=== PATIENT | male | born 1965 | race Caucasian/White ===

== ENCOUNTER 2019-04-17 21:34 | Emergency (ER) | payer SELFPAY ==
[~2019-04-17] VITALS: Ht 172.7 cm; Wt 77.1 kg
[2019-04-17 22:07] VITALS: BP 148/89; Ht 172.7 cm; Wt 77.1 kg
== END 2019-04-18 02:01 | disposition left against medical advice (07) ==
LOC: ED 21:34
DX: Z53.21 Procedure and treatment not carried out due to patient leaving prior to being seen by health care provider (principal)

== ENCOUNTER 2019-09-25 11:35 | Inpatient (IN) | payer BC ==
[~2019-09-25] VITALS: Ht 177.8 cm; Wt 97.1 kg
[2019-09-25 11:40] VITALS: Ht 177.8 cm; Wt 97.1 kg
[2019-09-25 13:24] LABS: PLATELET COUNT 275 x10^3mcL (130-400)
[2019-09-25 13:25] LABS: CARBON DIOXIDE 27.3 mmol/L (21-32); CHLORIDE SERUM 100 mmol/L (98-107); CREATININE SERUM 1.3 mg/dL (0.7-1.3); GFR1 > 60 mL/min; GLUCOSE SERUM 104 mg/dL (74-106); POTASSIUM SERUM 3.5 mmol/L (3.5-5.1); SODIUM SERUM 135 mmol/L (136-145)
[2019-09-25 13:31] LABS: BASOPHIL % 0 % (0-2)
[2019-09-25 13:36] LABS: ALBUMIN 3.4 g/dL (3.4-5.0); ALKALINE PHOSPHATASE 102 U/L (46-116); ALT/SGPT 24 U/L (16-63); AST/SGOT 11 U/L (15-37); BILIRUBIN TOTAL 1.82 mg/dL (0.20-1.00); C REACTIVE PROTEIN 7.3 mg/dL (<=0.9); TOTAL PROTEIN, SERUM 7.6 g/dL (6.4-8.2)
[2019-09-25 13:38] LABS: CK-MB 0.7 ng/mL (0-3.6)
[2019-09-25 13:59] LABS: ERYTHROCYTE SED RATE 14 mm/hr (0-20)
[2019-09-25 14:02] LABS: T3 TOTAL 1.26 ng/mL
[2019-09-25 14:54] LABS: FREE T4 0.95 ng/dL (0.76-1.46); FREE THYROXINE INDEX 2.3 ug/dL (1.4-4.5); T4(THYROXINE) 6.9 ug/dL (4.7-13.3)
[2019-09-25 17:56] LABS: CHOLESTEROL/HDL RATIO 3.3; MAGNESIUM 2.2 mg/dL (1.8-2.4); PHOSPHOROUS 2.7 mg/dL (2.5-4.9)
[2019-09-26 00:30] VITALS: BP 155/82
[2019-09-26 00:31] LABS: UA SPECIFIC GRAVITY 1.025 (1.005-1.035); microscopic required? YES; urine erythrocyte 2+ (NEGATIVE)
[2019-09-26 00:49] LABS: AMPHETAMINE QUAL UR POSITIVE (See below)
[2019-09-26 05:40] VITALS: BP 157/93
[2019-09-26 08:15] LABS: BASOPHIL % 0.2 % (0-2); PLATELET COUNT 229 x10^3mcL (130-400)
[2019-09-26 08:44] LABS: CALCIUM 7.6 mg/dL (8.5-10.1); CHLORIDE SERUM 103 mmol/L (98-107); CREATININE SERUM 1.1 mg/dL (0.7-1.3); GFR1 > 60 mL/min; GLUCOSE SERUM 107 mg/dL (74-106); MAGNESIUM 2.1 mg/dL (1.8-2.4); PHOSPHOROUS 2.8 mg/dL (2.5-4.9); POTASSIUM SERUM 3.4 mmol/L (3.5-5.1); SODIUM SERUM 136 mmol/L (136-145)
[2019-09-26 08:58] LABS: RED CELL DISTRIBUTION WIDTH 14.6 % (11.5-14.5)
[2019-09-26 09:32] VITALS: BP 127/82
[2019-09-26 12:46] VITALS: BP 139/95
[2019-09-26] MEDS ORDERED: ECOZA1% TOP (14:36)
[2019-09-26] MEDS ORDERED: ZES5 PO (14:37)
[2019-09-26 16:10] VITALS: BP 140/92
[2019-09-26 16:26] VITALS: BP 140/92
== END 2019-09-26 17:10 | disposition home or self-care (01) | DRG 603 ==
LOC: ED 11:35 → MU 15:40 → DU 09-26 10:39
PROVIDERS: Specialist; ADMIT Family Medicine; ATTEND Family Medicine
DX: L03.115 Cellulitis of right lower limb (principal); T69.022A Immersion foot, left foot, initial encounter; T69.021A Immersion foot, right foot, initial encounter; E87.1 Hypo-osmolality and hyponatremia; L03.116 Cellulitis of left lower limb; B35.3 Tinea pedis; D72.829 Elevated white blood cell count, unspecified; E86.0 Dehydration; I10 Essential (primary) hypertension; E11.9 Type 2 diabetes mellitus without complications; E83.51 Hypocalcemia; T24.201A Burn of second degree of unspecified site of right lower limb, except ankle and foot, initial encounter; T24.202A Burn of second degree of unspecified site of left lower limb, except ankle and foot, initial encounter; X08.8XXA Exposure to other specified smoke, fire and flames, initial encounter; Y92.89 Other specified places as the place of occurrence of the external cause; Z90.49 Acquired absence of other specified parts of digestive tract; Y93.89 Activity, other specified; Y99.8 Other external cause status
CPT/HCPCS: 82962; 84439; G0378; J1815; J1885; J2543; J3370; J7030; J7050; Q0092